=== PATIENT | female | born 2000 | race Caucasian/White ===

== ENCOUNTER 2022-10-19 08:03 | Emergency (ER) | payer OTHER, SELFPAY ==
[2022-10-19 08:11] VITALS: BP 111/67; PULSE 95; RESP 18; TEMP 36.5; O2SAT 98
--- NOTE | 2022-10-19 08:11 | ED.URI ---
HPI - URI/Sore Throat General Chief Complaint: Upper Respiratory Infection Stated Complaint: Sore Throat Source: patient and RN notes reviewed History of Present Illness HPI Narrative: 22-year-old female presents urgent care with complaints of a sore throat since Tuesday. Patient states she had painful swallowing yesterday. Patient reports slight cough as well. Denies any fevers chills, chest pain, shortness of breath, vomiting, diarrhea. Some parts of this dictation were generated by voice recognition software and may contain typographical and/or grammatical inaccuracies. Related Data Home Medications Medication Instructions Recorded Confirmed alprazolam 0.25 mg tablet mg 10/19/22 bupropion HCl 300 mg 24 hr tablet, mg PO 10/19/22 extended release escitalopram oxalate 5 mg tablet mg 10/19/22 lamotrigine 150 mg tablet mg 10/19/22 metformin 500 mg tablet mg 10/19/22 propranolol 10 mg tablet mg 10/19/22 risperidone 0.5 mg tablet mg 10/19/22 sertraline 100 mg tablet mg 10/19/22 spironolactone 25 mg tablet mg 10/19/22 Allergies Allergy/AdvReac Type Severity Reaction Status Date / Time amoxicillin Allergy Hives Verified 10/19/22 08:11 Review of Systems Review of Systems: CONSTITUTIONAL: Denies fever, chills, or sweats. EYES: Denies visual changes, redness, or discharge. ENT: Sore throat CARDIOVASCULAR: Denies chest pain, palpitations, or edema. RESPIRATORY: Slight cough GASTROINTESTINAL: Denies abdominal pain, nausea, vomiting, or diarrhea. GENITOURINARY: Denies dysuria or hematuria. SKIN: Denies rash or itching. MUSCULOSKELETAL: Denies back pain, joint pain, or myalgia. NEUROLOGIC: Denies headache, numbness, or weakness. PMFSH Comments At the time of my signature, I reviewed and agree with the nursing past medical, surgical, social, and family history. There is no relevant family history pertinent to the patient complaint. Exam Narrative: GENERAL: This is a well-nourished, well-developed patient, in no apparent distress. HEAD: normocephalic, atraumatic. EYES: PERRL. Sclera clear/white. Vision is grossly intact. NOSE: External nose normal with no obvious nasal discharge, nares without redness, no rhinorrhea. THROAT: Mucous membranes moist, posterior pharynx erythemic, no exudate.. NECK: Neck supple, non-tender with mild lymphadenopathy. CARDIOVASCULAR: Regular rate and rhythm without murmurs, gallops, or rubs. RESPIRATORY: Clear to auscultation. Breath sounds equal bilaterally. No wheezes, rales, or rhonchi. SKIN: warm, intact with no suspicious lesions or rash, good texture and turgor. NEURO: awake, alert, and oriented to person, place and time. There were no obvious focal neurologic abnormalities. BACK: Nontender without deformity or crepitance. No flank tenderness. Course Course Level of Care: Express Care Visit Vital Signs Vital signs: Vital Signs Temperature 97.7 F 10/19/22 08:11 Pulse Rate 95 10/19/22 08:11 Respiratory Rate 18 10/19/22 08:11 Blood Pressure 111/67 10/19/22 08:11 Pulse Oximetry 98 10/19/22 08:11 Oxygen Delivery Room Air 10/19/22 08:11 Temperature 97.7 F 10/19/22 08:11 Pulse Rate 95 10/19/22 08:11 Respiratory Rate 18 10/19/22 08:11 Blood Pressure 111/67 10/19/22 08:11 Pulse Oximetry 98 10/19/22 08:11 Oxygen Delivery Room Air 10/19/22 08:11 Reviewed MDM - URI/Sore Throat MDM Narrative Medical decision making narrative: Rapid strep is negative in the office; however we will send to the lab for confirmation; there is a small percentage chance that it can come back positive; if it is, we will call you in 2-3days; and your prescription will be call in to your pharmacy. However, there is NO indication for antibiotic at this time. -Oral rinses such as: Salt water gargles and/or may use topical anesthetic (eg. Chloraseptic spray) or lozenges to relieve dryness or throat pain. -Take tylenol and ibuprofen as needed for pain and fever
== END 2022-10-19 08:32 | disposition home or self-care (01) ==
PROVIDERS: Emergency Provider Nurse Practitioner Family; PCP Family Medicine
DX: J02.9 Acute pharyngitis, unspecified (principal); Z79.84 Long term (current) use of oral hypoglycemic drugs
CPT/HCPCS: 87081; 87880; 99213; G0463